=== PATIENT | female | born 1965 | race African-American/Black ===

== ENCOUNTER 2017-05-25 22:39 | Emergency (ER) | payer SELFPAY ==
[~2017-05-25] VITALS: Ht 154.9 cm; Wt 67.0 kg
[~2017-05-25 22:39] MED LIST: LORTA5 PO; ZITH250T PO
[2017-05-25 22:46] VITALS: BP 220/102; PULSE 89; RESP 16; TEMP 98.6; O2SAT 96
[2017-05-26] MEDS ORDERED: PROP20TA3 PO (00:16)
[2017-05-26] MEDS ORDERED: POTA10TA2 PO (00:16)
[2017-05-26] MEDS ORDERED: HYDR25TA5 PO (00:16)
[2017-05-26 00:26] VITALS: BP 210/106; PULSE 81; RESP 20; O2SAT 97
[2017-05-26] MEDS ORDERED: DICL50TA3 PO (00:27)
[2017-05-26] MEDS ORDERED: CYCL10TA PO (00:27)
[2017-05-26] MEDS ORDERED: ACETAMINOPHEN/HYDROcodone 325 MG/5 MG TAB PO ONE (00:30)
[2017-05-26] MEDS ORDERED: cloNIDine HCL 0.2 MG TAB PO ONE (00:30)
[2017-05-26 01:18] VITALS: BP 196/95; PULSE 64; RESP 16; O2SAT 97
--- NOTE | 2017-05-26 01:35 | RADRPT ---
EXAM DATE/TIME: 05/26/2017 00:56 [place] COMPARISON: No previous studies available for comparison. INDICATIONS : Shoulder pain from fall this morning. MEDICAL HISTORY : None. SURGICAL HISTORY : None. ENCOUNTER: Initial ACUITY: 1 day PAIN SCORE: 6/10 LOCATION: Left shoulder FINDINGS: Multiple view examination of the left shoulder demonstrates no evidence of fracture or dislocation. The glenohumeral and acromioclavicular joints are maintained. There is normal range of motion betwee n internal and external rotation. Bony mineralization is normal. CONCLUSION: No acute fracture. Kaden Hernandez MD on May 26, 2017 at 1:32 Board Certified Radiologist. This report was verified electronically.
--- NOTE | 2017-05-26 01:39 | PD ---
HPI Chief Complaint: Injury Time Seen by Provider: 00:18 Travel History International Travel<30 days: No Contact w/Intl Traveler<30days: No Traveled to known affect area: No History of Present Illness HPI 52-year-old black female presents emergent department with complains of left shoulder pain after a fall earlier today. She states that she has pain up into her left shoulder and neck. She denies any focal numbness or tingling. She went to work today and presents after work for evaluation. Symptoms are moderate. Worse with movement of that left arm and neck. No alleviating factors. Patient reports that she has taken her medication for blood pressure [facility] Past Medical History Heart Rhythm Problems: No Cardiac Catheterization: No Cardiovascular Problems: Yes High Cholesterol: No Congestive Heart Failure: No Diabetes: No Diminished Hearing: No Hypertension: Yes Immunizations Current: Yes ?: Not Menopausal: Yes Past Surgical History Surgical History: No Previous Surgery Coronary Artery Bypass Graft: No Social History Alcohol Use: No Tobacco Use: Yes Substance Use: No Allergies-Medications (Allergen,Severity, Reaction): Coded Allergies: No Known Allergies (Verified Adverse Reaction, Unknown, 05/25/17) Reported Meds & Prescriptions Reported Meds & Active Scripts Active Flexeril (Cyclobenzaprine HCl) 10 Mg Tab 10 Mg PO TID Diclofenac Sodium DR (Diclofenac Sodium) 50 Mg Tabdr 50 Mg PO TID 7 Days Reported Potassium Chloride ER (Potassium Chloride) 10 Meq Tab 10 Meq PO DAILY Propranolol (Propranolol HCl) 20 Mg Tab 20 Mg PO DAILY Hydrochlorothiazide 25 Mg Tab 25 Mg PO BID Review of Systems Except as stated in HPI: all other systems reviewed are Neg Physical Exam Narrative GENERAL: Well-developed, well-nourished in no apparent distress. Nontoxic appearing. HEAD: Normocephalic, atraumatic. EYES: Pupils equal round and reactive. Extraocular motions intact. No scleral icterus. No injection or drainage. ENT: Nose clear. Throat without erythema, tonsillar hypertrophy or exudate. Uvula midline. Airway patent. NECK: Trachea midline. Supple, left trapezius tenderness, moves head freely. No central bony tenderness or spasm. CARDIOVASCULAR: Regular rate and rhythm without murmurs, gallops, or rubs. RESPIRATORY: Clear to auscultation. Breath sounds equal bilaterally. No wheezes , rales, or rhonchi. GASTROINTESTINAL: Abdomen soft, non-tender, nondistended. No hepato-splenomegaly , or palpable masses. No guarding. EXTREMITIES: No clubbing, cyanosis, or edema. Examination of left upper extremity reveals pain to the left trapezius. She states the pain radiates into her glenohumeral joint. She has decreased range of motion due to pain. The skin is intact. She has no pain in her elbow, wrist or hand. Right upper extremity as well as lower extremities are unremarkable. BACK: Nontender without deformity. No flank tenderness. NEUROLOGICAL: Awake, alert and oriented x 3 .Cranial nerves grossly intact. Motor and sensory grossly within normal limits. Normal speech. Data Data Last Documented VS Vital Signs Date Time Temp Pulse Resp B/P (MAP) Pulse Ox O2 Delivery O2 Flow Rate FiO2 05/26/17 01:18 64 16 196/95 (128) 97 Room Air 05/25/17 22:46 98.6 Orders Orders Shoulder, Complete (>2vws) (05/26/17 00:18) Ice/Cold Pack (05/26/17 00:18) Clonidine (Catapres) (05/26/17 00:30) Acetamin-Hydrocod 325-5 Mg ([place] 5-325 (05/26/17 00:30) Ed Discharge Order (05/26/17 01:32) Splint Or Brace Apply/Monitor (05/26/17 01:32) MDM Medical Decision Making Medical Screen Exam Complete: Yes Emergency Medical Condition: Yes Medical Record Reviewed: Yes Interpretation(s) Left shoulder: No acute fracture. Patient does have some degenerative changes and slight widening of the acromioclavicular joint Differential Diagnosis MDM: High Differential diagnoses: Fracture, sprain, strain, dislocation, contusion, neurovascular injury Narrative Course Patient's blood pressure is noted to be elevated over 200. She is given 0.2 mg of lidocaine by mouth. X-ray of the left shoulder is negative for bony injury. She does have some widening of the acromioclavicular joint. She is given a sling and a normal L5 Garcia grams by mouth. This is left shoulder sprain, left acromioclavicular joint separation, hypertension Diagnosis Primary Impression: left shoulder sprain Additional Impressions: left acromioclavicular separation hypertension Patient Instructions: General Instructions, Narcotic given in the ED Departure Forms: Tests/Procedures, Work Release Special Instructions: No work 4 days. Additional Instructions: Rest. Ice for the next 3 days followed by heat . Flexeril and Voltaren. Sling. Daily blood pressures. Follow-up with an orthopedic in one week. Follow-up with a primary care doctor in one week. Return to the ER for emergencies. Med/Other Pt SpecificInfo: Prescription(s) given Scripts Cyclobenzaprine (Flexeril) 10 Mg Tab 10 MG PO TID for Muscle Spasm, #21 TAB 0 Refills Prov: Nic Oneill MD 05/26/[address] (Diclofenac Sodium DR) 50 Mg Tabdr 50 MG PO TID for 7 Days, TAB 0 Refills Prov: Nic Oneill MD 05/26/17 Disposition: 01 DISCHARGE HOME Condition: Stable Rashaad Vega May 26, 2017 01:39
[2017-05-26 02:02] VITALS: BP 122/64; PULSE 64; RESP 15; O2SAT 95
== END 2017-05-26 02:29 | disposition home or self-care (01) ==
LOC: NEPD 22:39
DX: S43.402A Unspecified sprain of left shoulder joint, initial encounter (principal); S43.102A Unspecified dislocation of left acromioclavicular joint, initial encounter; W19.XXXA Unspecified fall, initial encounter; I10 Essential (primary) hypertension; Z72.0 Tobacco use
CPT/HCPCS: 73030; 99283